=== PATIENT | male | born 1975 | race Caucasian/White ===

== ENCOUNTER 2019-06-03 02:58 | Emergency (ER) | payer MEDICAID ==
[~2019-06-03] VITALS: Ht 434.3 cm; Wt 76.7 kg
[2019-06-03 03:04] VITALS: Ht 434.3 cm; Wt 76.7 kg
[2019-06-03 06:39] VITALS: BP 117/73
== END 2019-06-03 06:39 | disposition home or self-care (01) ==
LOC: ED 02:58
DX: R10.13 Epigastric pain (principal); F17.210 Nicotine dependence, cigarettes, uncomplicated; F15.10 Other stimulant abuse, uncomplicated; J45.909 Unspecified asthma, uncomplicated; Z98.890 Other specified postprocedural states
CPT/HCPCS: 99406; Q0092